=== PATIENT | female | born 1935 | race Caucasian/White ===

== ENCOUNTER 2021-01-12 18:21 | Emergency (ER) | payer OTHER ==
[~2021-01-12] VITALS: Ht 170.2 cm; Wt 63.5 kg
[~2021-01-12 18:21] MED LIST: BENZAPRIL; LEVO500T31; LEVO50TA66; TRIA25CA
[2021-01-12] MEDS ORDERED: HYDR12.55 PO (19:02)
[2021-01-12] MEDS ORDERED: SULI200T4 PO (19:02)
[2021-01-12] MEDS ORDERED: BENA10TA9 PO (19:02)
[2021-01-12] MEDS ORDERED: ESTR1DIS2 TOP (19:02)
[2021-01-12] MEDS ORDERED: CYA100I IM (19:02)
[2021-01-12] MEDS ORDERED: LEVO50TA7 PO (19:02)
[2021-01-12] MEDS ORDERED: METH500T22 PO (19:02)
[2021-01-12] MEDS ORDERED: ACETAMINOPHEN 500 MG TAB PO ONE (19:30)
[2021-01-12] MEDS ORDERED: hydrALAZINE HCL 20 MG/ML VL IV ONE (19:30)
[2021-01-12 19:36] LABS: Basophils # (auto) 0 10 ^3/uL (0-0.2); Basophils % (auto) 0.5 % (0.0-2.0); Eosinophils # (auto) 0.1 10 ^3/uL (0-0.8); Eosinophils % (auto) 0.8 % (0.0-7.0); Hematocrit 40.4 % (36.0-46.0); Hemoglobin 13.7 g/dL (12.2-16.2); Lymphocytes % (auto) 13.2 % (10.0-50.0); Mean Corpuscular Hemoglobin 31.6 pg (28.0-32.0); Mean Corpuscular Hgb Conc. 33.8 g/dL (32.0-36.0); Mean Corpuscular Volume 93.3 fL (80.0-100.0); Monocytes # (auto) 0.5 10 ^3/uL (0-1.3); Monocytes % (auto) 6.6 % (0.0-12.0); Neutrophils # (auto) 6.2 10 ^3/uL (1.6-8.6); Neutrophils % (auto) 78.9 % (37.0-80.0); Nucleated Red Blood Cells % 0.1 %; Platelet Count (auto) 229 10^3/uL (140-450); Red Blood Cells 4.33 10^6/uL (4.0-5.20); Red Cell Distribution Width 15.3 % (11.8-14.3); White Blood Cell 7.9 10^3/uL (4.4-10.8)
[2021-01-12 19:49] LABS: Alanine Aminotransferase 31 U/L (13-56); Albumin 3.2 g/dL (3.4-5.0); Anion Gap 9 (5-15); Aspartate Aminotransferase 20 U/L (15-37); BUN/Creatinine Ratio 19.2; Blood Urea Nitrogen 10 mg/dL (7-18); Calcium 8.5 mg/dL (8.5-10.1); Carbon Dioxide 26 mmol/L (21-32); Chloride 103 mmol/L (98-107); GFR African American 144 mL/min; GFR Non-African American 119 mL/min; Glucose 102 mg/dL (74-106); Magnesium 2.3 mg/dL (1.6-2.6); Potassium 3.6 mmol/L (3.5-5.1); Sodium 138 mmol/L (136-145)
[2021-01-12 19:55] LABS: INR 0.97 (0.9-1.15)
[2021-01-12 20:03] LABS: Alkaline Phosphatase 93 U/L (45-117); Bilirubin, Total 0.4 mg/dL (0.2-1.0); Total Protein 6.7 g/dL (6.4-8.2)
[2021-01-12] MEDS ORDERED: MORPHINE SULF INJ 2 MG/ML SYRINGE 1ML IV ONE (21:45)
[2021-01-12] MEDS ORDERED: METOCLOPRAMIDE HCL 5MG/ml INJ 2ml VIAL IV ONE (21:45)
[2021-01-12] MEDS ORDERED: LORazepam 2MG/ML-1ML VIAL IV PRN (22:15)
[2021-01-12 23:04] LABS: Triglycerides 55 mg/dL (< 150)
[2021-01-12 23:11] LABS: Cholesterol 209 mg/dL (< 200); HDL Cholesterol 75 mg/dL (40-59); LDL Cholesterol 126 mg/dL (< 100)
[2021-01-12] MEDS ORDERED: IOHEXOL 350 MG/ML 100ML IJ ONE (23:37)
[2021-01-13 00:50] VITALS: BP 137/58
[2021-01-13] MEDS ORDERED: ASPirin-EC 81 mg tab PO SCH (10:00)
[2021-01-13] MEDS ORDERED: ATORVASTATIN 20 MG TAB PO SCH (22:00)
== END 2021-01-13 01:16 | disposition short-term general hospital (02) ==
LOC: ER 18:21
DX: I21.4 Non-ST elevation (NSTEMI) myocardial infarction (principal); E87.2 Acidosis; E86.0 Dehydration; N17.9 Acute kidney failure, unspecified; I10 Essential (primary) hypertension
CPT/HCPCS: 36415; 70450; 70496; 71045; 80053; 80061; 83735; 84484; 85025; 85610; 85652; 86141; 93005; 93886; 96374; 96375; 99285; J0360; J2270; J2765; Q9967

== ENCOUNTER 2021-08-16 21:17 | Inpatient (IN) | payer OTHER ==
[~2021-08-16] VITALS: Ht 170.2 cm; Wt 62.6 kg
[~2021-08-16 21:17] MED LIST changes: +BENA10TA15 PO; +CYA100I IM; +ESTR1DIS2 TOP; +HYDR12.55 PO; +LEVO50TA7 PO; +METH500T22 PO; +SULI200T5 PO
[2021-08-16] MEDS ORDERED: NIFEdipine 10 MG CAP PO ONE (21:30)
[2021-08-16] MEDS ORDERED: MORPHINE SULFATE 4 MG/ML SYR/VIAL IV ONE (22:00)
[2021-08-16] MEDS ORDERED: ONDANSETRON HCL 4 MG/2 ML VIAL IV ONE ×2 (22:00)
[2021-08-16 22:34] LABS: Basophils # (auto) 0 10 ^3/uL (0-0.2); Basophils % (auto) 0.7 % (0.0-2.0); Eosinophils # (auto) 0 10 ^3/uL (0-0.8); Eosinophils % (auto) 0.6 % (0.0-7.0); Hematocrit 44.5 % (36.0-46.0); Hemoglobin 14.6 g/dL (12.2-16.2); Lymphocytes # (auto) 1.1 10 ^3/uL (0.4-5.4); Mean Corpuscular Hemoglobin 30.6 pg (28.0-32.0); Mean Corpuscular Hgb Conc. 32.9 g/dL (32.0-36.0); Mean Corpuscular Volume 93.2 fL (80.0-100.0); Monocytes # (auto) 0.5 10 ^3/uL (0-1.3); Neutrophils # (auto) 4.7 10 ^3/uL (1.6-8.6); Neutrophils % (auto) 73.7 % (37.0-80.0); Nucleated Red Blood Cells % 0.2 %; Red Blood Cells 4.78 10^6/uL (4.0-5.20); Red Cell Distribution Width 14.9 % (11.8-14.3); White Blood Cell 6.3 10^3/uL (4.4-10.8)
[2021-08-16 22:39] LABS: Urine Bacteria FEW /hpf (None Seen); Urine Blood Negative /uL (Negative); Urine Specific Gravity 1.001 (1.001-1.035); Urine WBC 11 /hpf (0 - 5)
[2021-08-16 22:53] LABS: INR 0.99 (0.9-1.15); Partial Thromboplastin Time 26.5 sec (23.6-33.0)
[2021-08-16 22:58] LABS: Albumin 3.6 g/dL (3.4-5.0); BUN/Creatinine Ratio 27.4; Calcium 8.9 mg/dL (8.5-10.1); Magnesium 2.3 mg/dL (1.6-2.6); Potassium 3.7 mmol/L (3.5-5.1)
[2021-08-16 23:01] LABS: Bilirubin, Total 0.3 mg/dL (0.2-1.0); Total Protein 7.2 g/dL (6.4-8.2)
[2021-08-17] MEDS ORDERED: KETOROLAC TROMETH 30 MG/ML 1ML VIAL IV ONE (01:45)
[2021-08-17] MEDS ORDERED: HYDROcodone-ACET 7.5/325MG TAB PO ONE ×2 (01:45)
[2021-08-17] MEDS: NITROFURANTOIN 100 mg CAP PO SCH ×3 (02:45→09:46)
[2021-08-17] MEDS ORDERED: cloNIDine HCL 0.1 MG TAB PO PRN (02:45)
[2021-08-17] MEDS ORDERED: HYDROcodone-ACET 5/325MG TAB PO PRN (02:45)
[2021-08-17] MEDS ORDERED: MORPHINE SULFATE INJECTION 2 MG/ML SYRG IV PRN (02:45)
[2021-08-17] MEDS ORDERED: SUMAtriptan SUCCINATE 6 MG/0.5 ML VL SC ONE (02:45)
[2021-08-17] MEDS ORDERED: ONDANSETRON HCL 4 MG/2 ML VIAL IV PRN (02:45)
[2021-08-17] MEDS ORDERED: NITROGLYCERIN 0.4 MG SL TAB SL PRN (02:45)
[2021-08-17] MEDS ORDERED: TEMAZEPAM 15 MG CAP PO PRN (02:45)
[2021-08-17] MEDS ORDERED: ACETAMINOPHEN 325 MG TAB PO PRN (02:45)
[2021-08-17] MEDS ORDERED: LEVOTHYROXINE SODIUM 50 MCG TAB PO SCH (07:00)
[2021-08-17 08:00] VITALS: BP 133/78
[2021-08-17] MEDS ORDERED: BENAZEPRIL HCL 10 MG TAB PO SCH (10:00)
[2021-08-17] MEDS ORDERED: PANTOPRAZOLE 40 MG TAB PO SCH (10:00)
[2021-08-17] MEDS ORDERED: HCTZ 25 MG TAB PO SCH (10:00)
[2021-08-17] MEDS ORDERED: ENOXAPARIN SOD 40 MG/0.4 ML SYRINGE SC SCH (10:00)
[2021-08-17 13:15] VITALS: BP 120/63
[2021-08-17 14:42] VITALS: BP 133/78
== END 2021-08-17 16:16 | disposition home or self-care (01) | DRG 305 ==
LOC: ER 21:17 → EDUNIT# 21:17 → TELE 08-17 02:38 → TELE-CENTR 08-17 07:40
PROVIDERS: ADMIT Nurse Practitioner; ATTEND Internal Medicine
DX: I16.0 Hypertensive urgency (principal); N39.0 Urinary tract infection, site not specified; G43.901 Migraine, unspecified, not intractable, with status migrainosus; E03.9 Hypothyroidism, unspecified; Z20.822 Contact with and (suspected) exposure to COVID-19; Z86.73 Personal history of transient ischemic attack (TIA), and cerebral infarction without residual deficits; Z88.0 Allergy status to penicillin
CPT/HCPCS: 36415; 70450; 71045; 80053; 81001; 83735; 84443; 85025; 85610; 85730; 87426; 93005; 93306; 96372; 96374; 96375; G0378; J1885; J2405

== ENCOUNTER 2021-09-16 18:19 | Emergency (ER) | payer OTHER ==
[~2021-09-16] VITALS: Ht 170.2 cm; Wt 62.6 kg
[2021-09-16 19:44] LABS: Basophils # (auto) 0 10 ^3/uL (0-0.2); Eosinophils # (auto) 0 10 ^3/uL (0-0.8); Eosinophils % (auto) 1.1 % (0.0-7.0); Hematocrit 41.5 % (36.0-46.0); Hemoglobin 13.5 g/dL (12.2-16.2); Lymphocytes # (auto) 1.1 10 ^3/uL (0.4-5.4); Lymphocytes % (auto) 24.9 % (10.0-50.0); Mean Corpuscular Hemoglobin 29.8 pg (28.0-32.0); Mean Corpuscular Hgb Conc. 32.4 g/dL (32.0-36.0); Mean Corpuscular Volume 91.9 fL (80.0-100.0); Monocytes # (auto) 0.3 10 ^3/uL (0-1.3); Monocytes % (auto) 7.6 % (0.0-12.0); Neutrophils # (auto) 2.8 10 ^3/uL (1.6-8.6); Neutrophils % (auto) 65.4 % (37.0-80.0); Red Blood Cells 4.52 10^6/uL (4.0-5.20); White Blood Cell 4.3 10^3/uL (4.4-10.8)
[2021-09-16 20:11] LABS: Albumin 3.2 g/dL (3.4-5.0); Calcium 8.7 mg/dL (8.5-10.1); Potassium 3.8 mmol/L (3.5-5.1)
[2021-09-16 20:32] LABS: BUN/Creatinine Ratio 21.7; Bilirubin, Total 0.4 mg/dL (0.2-1.0); Total Protein 6.7 g/dL (6.4-8.2)
[2021-09-16 22:15] VITALS: BP 170/63
== END 2021-09-16 22:20 | disposition home or self-care (01) ==
LOC: ER 18:19
DX: I10 Essential (primary) hypertension (principal); Z86.73 Personal history of transient ischemic attack (TIA), and cerebral infarction without residual deficits
CPT/HCPCS: 36415; 71045; 80053; 83735; 84484; 85025; 93005